=== PATIENT | male | born 1990 | race Caucasian/White ===

== ENCOUNTER 2016-11-24 07:52 | Day surgery (SDC) | payer OTHER ==
[~2016-11-24 07:52] MED LIST: CLINDAMYCIN 600MG PREMIX 50 ML IV ONE; HYDROmorphone 2 MG/ML VIAL IV PRN; IV RINGERS,LACTATED 1000ML 1,000 ML IV SCH; LIDOCAINE 1% PF 2 ML VIAL. ID PRN; MORPHINE SULFATE 2 MG/ML DISP.SYRIN. IV PRN; MORPHINE SULFATE 4 MG/ML DISP.SYRIN. IV PRN; ONDANSETRON PF 4 MG/2 ML VIAL. IV PRN; fentaNYL PF VIAL 100 MCG/2 ML VIAL IV PRN
[2016-11-24] MEDS ORDERED: LIDOCAINE 2% PF Vial for OR 5 ML VIAL. ONE (07:58)
[2016-11-24] MEDS ORDERED: PROPOFOL 20 ML IV ONE ×2 (07:58→09:28)
[2016-11-24] MEDS ORDERED: fentaNYL PF VIAL 100 MCG/2 ML VIAL ONE ×2 (07:59→09:56)
[2016-11-24] MEDS ORDERED: EPINEPHrine VIAL 30 MG/30 ML VIAL ONE (08:12)
[2016-11-24] MEDS ORDERED: HYDR-2758 PO (08:17)
[2016-11-24] MEDS ORDERED: MIDAZOLAM HCL/PF 2 MG/2 ML VIAL. ONE ×2 (08:19→08:53)
[2016-11-24] MEDS ORDERED: ROPIVacaine 0.5% PF 30 ML VIAL. ONE (08:20)
[2016-11-24] MEDS ORDERED: BUPIVACAINE MPF 0.5% 30 ML VIAL. ONE (09:21)
[2016-11-24] MEDS ORDERED: DEXAMETHASONE SOD PHOS 20 MG/5 ML VIAL. ONE (09:23)
[2016-11-24] MEDS ORDERED: DESFLURANE 61 TO 120 MINUTES IH ONE ×2 (09:32→09:35)
[2016-11-24] MEDS ORDERED: ONDANSETRON PF 4 MG/2 ML VIAL. ONE (09:50)
[2016-11-24] MEDS ORDERED: NEOSTIGMINE 10 MG/10 ML VIAL. ONE (09:50)
[2016-11-24] MEDS ORDERED: DESFLURANE 31 TO 60 MINUTES IH ONE (09:51)
[2016-11-24] MEDS ORDERED: GLYCOPYRROLATE 1 MG/5 ML VIAL. ONE (09:51)
[2016-11-24] MEDS ORDERED: ISOFLURANE > 120 MINUTES. IH ONE (09:56)
[2016-11-24] MEDS ORDERED: MORPHINE SULFATE 10 MG/ML VIAL. ONE (10:35)
--- NOTE | 2016-11-24 11:03 | DISCH ---
DISCHARGE INSTRUCTIONS Condition on Discharge Condition on Discharge: Stable Activity After Discharge Activity Instructions for Disc: Other, see below Other activity instructions: immobilizer at night, may remove for showering and gentle pendulum exercise Diet after Discharge Diet after Discharge: Regular Wound Incision Care Wound/Incision Care: Ice to area for comfort, Change dressing Other wound/incision instructi: remove dressing 2 days may then shower Contacting the DRBrittny after DC Call your doctor for: Concerns you may have Follow-Up Follow up with: Araceli 10 days ORION AZAR MD Nov 24, 2016 11:03
[2016-11-24] MEDS ORDERED: OXYC-327 PO (11:04)
[2016-11-24] MEDS: PROCHLORPERAZINE 10 MG/2 ML VIAL. IV PRN ×2 (11:09→11:31)
[2016-11-24] MEDS: fentaNYL PF VIAL 100 MCG/2 ML VIAL IV PRN ×4 (11:11→12:16)
--- NOTE | 2016-11-24 11:12 | PDOC4 ---
Operative Note Operative Note Date of surgery: 11/24/2016 Preoperative diagnosis SLAP tear left shoulder Postoperative diagnosis: Same plus significant subacromial irritation Procedure: Left shoulder arthroscopy SLAP repair and subacromial decompression Surgeon: Araceli Anesthesia: Gen. endotracheal plus interscalene block Estimated blood loss 15 mL Complications: None Operative indications: Patient is a 26-year-old male with a left shoulder injury that is severely limited his activities of daily living it hurts reaching across his body overhead away from his body laying on the shoulder at night and has been unresponsive to physical therapy. MRI showed superior labral tear and he has significant bicipital irritation signs present. I went over with him the possibility of operative treatment including SLAP repair versus possible biceps tenodesis and any other indicated procedures. All his questions were answered consent was obtained and he agrees to proceed with surgical evaluation and treatment. Specifically he is aware of the possibility of continued pain infection or nerve blood vessel damage medical or other anesthetic complications among others Operative text: Patient was identified procedure verified patient placed in the supine position on the operating table after adequate amounts of general endotracheal anesthesia plus a pre-existing scalene block were obtained he was placed decubitus left side up all bony prominences were well-padded and the left shoulder was examined under anesthesia found have full range of motion no instability. The left shoulder was then prepped and draped in standard sterile fashion timeout was performed patient procedure identified and verified, the left upper extremity was placed in 15 pounds of traction using the arthroscopic arm roberson a standard posterior portal was established an anterior portal established using spinal needle localization and the left shoulder joint was systematically examined. He was noted to have some separation of the superior labrum particularly anteriorly. He also had a [place] complex cordlike middle glenohumeral ligament and a sulcus present capsule ligament structures were noted to be normal as was the subscapularis insertion and the remainder the rotator cuff biceps tendon showed no subluxation redness or fraying. SLAP repair was carried out by debriding the superior labrum and given that the posterior aspect appeared intact anterior aspect was repaired with a single [employer] bio suture tack knotless anchor which was well placed in obtained excellent apposition to the bleeding bony bed. Subacromial space was then entered he was noted to have significant irritation at the [place] acromial ligament and significant bursal irritation as well bursa was excised for visualization and decompression was carried out removing anterior subacromial spur and coracoacromial ligament to a type I acromion using cutting block technique. The acromioclavicular joint was not compromised during this procedure and remained with an intact joint capsule and had minimal pain on previous examination and therefore was preserved. Any bony fragments were removed with arthroscopic shaver portals were closed with nylon suture portal sites were infused with have percent plain Marcaine sterile dressings were applied he was placed in an immobilizer extirpated transferred to postop holding in stable condition having tolerated procedure well ORION AZAR MD Nov 24, 2016 11:12
[2016-11-24] MEDS ORDERED: oxyCODONE/APAP 7.5/325 1 TAB TABLET PO ONE ×2 (11:45→11:55)
[2016-11-24 12:27] VITALS: BP 135/67
== END 2016-11-24 13:15 | disposition home or self-care (01) ==
LOC: SURG 07:52
PROVIDERS: ATTEND Orthopaedic Surgery
DX: S43.432A Superior glenoid labrum lesion of left shoulder, initial encounter (principal); X58.XXXA Exposure to other specified factors, initial encounter; Y93.89 Activity, other specified; Y92.89 Other specified places as the place of occurrence of the external cause; Y99.8 Other external cause status; Z88.0 Allergy status to penicillin; Z91.018 Allergy to other foods; Z87.442 Personal history of urinary calculi; Z87.39 Personal history of other diseases of the musculoskeletal system and connective tissue; Z72.89 Other problems related to lifestyle
CPT/HCPCS: 29807; 29822; C1713; J0171; J0780; J1100; J2250; J2270; J2405; J2704; J2710; J2795; J3010; J3490; J2001

== ENCOUNTER → 2017-03-09 | Day surgery (SDC) | payer OTHER ==
[~2017-03-09] MED LIST changes: -CLINDAMYCIN 600MG PREMIX 50 ML IV ONE; +CLINDAMYCIN 900MG PREMIX 50 ML IV; +DESFLURANE 61 TO 120 MINUTES IH; +DEXAMETHASONE SOD PHOS 20 MG/5 ML VIAL.; +ESMOLOL 100 MG/10 ML VIAL. IV; +GLYCOPYRROLATE 1 MG/5 ML VIAL.; -HYDROmorphone 2 MG/ML VIAL IV PRN; -IV RINGERS,LACTATED 1000ML 1,000 ML IV SCH; +LIDOCAINE 1% PF 2 ML VIAL. ID; -LIDOCAINE 1% PF 2 ML VIAL. ID PRN; +MIDAZOLAM HCL/PF 2 MG/2 ML VIAL.; -MORPHINE SULFATE 2 MG/ML DISP.SYRIN. IV PRN; -MORPHINE SULFATE 4 MG/ML DISP.SYRIN. IV PRN; +NEOSTIGMINE METHYLSULFATE 5 MG/5 ML SYRINGE.; +ONDANSETRON PF 4 MG/2 ML VIAL.; +ONDANSETRON PF 4 MG/2 ML VIAL. IV; -ONDANSETRON PF 4 MG/2 ML VIAL. IV PRN; +PROCHLORPERAZINE 10 MG/2 ML VIAL. IV; +PROPOFOL 20 ML IV; +ROCURONIUM 50 MG/5 ML VIAL.; +SEVOFLURANE 61 TO 120 MINUTES. IH; +fentaNYL PF VIAL 100 MCG/2 ML VIAL; +fentaNYL PF VIAL 100 MCG/2 ML VIAL IV; -fentaNYL PF VIAL 100 MCG/2 ML VIAL IV PRN; +fentaNYL PF VIAL 250 MCG/5 ML VIAL
[2017-03-09] MEDS: IV RINGERS,LACTATED 1000ML 1,000 ML IV (06:41)
[2017-03-09] MEDS: EPINEPHrine VIAL 30 MG/30 ML VIAL (08:37)
[2017-03-09] MEDS: BUPIVACAINE MPF 0.5% 30 ML VIAL. (08:37)
[2017-03-09] MEDS: MORPHINE SULFATE 2 MG/ML DISP.SYRIN. IV ×2 (09:58→10:18)
[2017-03-09] MEDS: HYDROmorphone 2 MG/ML VIAL IV ×2 (10:08→10:28)
[2017-03-09] MEDS: oxyCODONE/APAP 7.5/325 1 TAB TABLET PO (10:31)
[2017-03-09] MEDS: fentaNYL PF VIAL 100 MCG/2 ML VIAL IV ×2 (10:34→10:42)
== END | disposition home or self-care (01) ==
LOC: SURG 06:00
DX: S43.432A Superior glenoid labrum lesion of left shoulder, initial encounter (principal); X58.XXXA Exposure to other specified factors, initial encounter; Y93.89 Activity, other specified; Y92.89 Other specified places as the place of occurrence of the external cause; Y99.8 Other external cause status; M75.02 Adhesive capsulitis of left shoulder; Z87.39 Personal history of other diseases of the musculoskeletal system and connective tissue; Z72.89 Other problems related to lifestyle; Z87.442 Personal history of urinary calculi; Z88.0 Allergy status to penicillin; Z91.018 Allergy to other foods; Z98.890 Other specified postprocedural states
CPT/HCPCS: 29824; C1713; J0171; J1100; J1170; J2250; J2270; J2405; J2704; J2710; J3010; J3490; J7120